=== PATIENT | female | born 1955 | race Caucasian/White ===

== ENCOUNTER 2021-05-23 20:44 | Emergency (ER) | payer OTHER ==
[~2021-05-23] VITALS: Ht 154.9 cm; Wt 99.8 kg
[~2021-05-23 20:44] MED LIST: ASPIRIN EC81 M1 PO; CALCIUM 600 +1 EAC1 PO; CINNAMON PO; DILTIAZEM 24HR240 MG PO; FISH OIL 500 M1 EACH PO; FOSAMAX 70 MG T70 M1 PO; HYDROCHLOROTHIA25 M1 PO; LEVOTHYROXIN0.137 M1 PO; METFORMIN PO; MULTIVITAMINS PO; PRILOSEC 20 MG20 MG PO; SIMVASTATIN80 MG PO; VITAMIN B-625 MG PO; VITAMIN D3400 UNI1 PO
[2021-05-23] MEDS ORDERED: COZAAR 25 MG TA25 M1 PO (20:55)
[2021-05-23] MEDS ORDERED: PREVACID30 MG PO (20:55)
[2021-05-23 23:27] VITALS: BP 141/70
== END 2021-05-23 23:28 | disposition home or self-care (01) ==
LOC: M.ERS 20:44
DX: S93.491A Sprain of other ligament of right ankle, initial encounter (principal); I10 Essential (primary) hypertension; E78.5 Hyperlipidemia, unspecified; K21.9 Gastro-esophageal reflux disease without esophagitis; E03.9 Hypothyroidism, unspecified; Z79.899 Other long term (current) drug therapy; Z88.5 Allergy status to narcotic agent; Z88.2 Allergy status to sulfonamides; Z88.0 Allergy status to penicillin; Z88.8 Allergy status to other drugs, medicaments and biological substances; W01.0XXA Fall on same level from slipping, tripping and stumbling without subsequent striking against object, initial encounter; Y93.89 Activity, other specified; Y92.89 Other specified places as the place of occurrence of the external cause; Y99.8 Other external cause status